=== PATIENT | male | born 1960 | race Caucasian/White ===

== ENCOUNTER 2023-07-04 12:26 | Outpatient (OUT) | payer MEDICARE, SELFPAY ==
--- NOTE | 2023-07-04 12:28 | ECG_ITS ---
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
--- NOTE | 2023-07-04 12:55 | XR_ITS ---
The [address] [address] Patient Name: CHAITANYA BELTRAN MRN: [id number] date: 1960 Sex: M Assigned Patient Location: [facility] Current Patient Location: Accession/Order Number: [id number] Exam Date: 07/04/2023 13:20 Report Date: 07/05/2023 09:01 At the request of: PENG VILLALTA Procedure: XR chest 2V EXAM: XR chest 2V HISTORY: Preop exam COMPARISON: None. TECHNIQUE: PA and lateral views of the chest. FINDINGS: The cardiomediastinal silhouette is normal. No focal consolidation is identified. There is no pneumothorax. No pleural effusion is noted. The osseous structures are intact. XR/XR chest 2V IMPRESSION: No acute cardiopulmonary process. Electronically authenticated by: KAYLA RAYMUNDO Date: 07/05/2023 09:01
[2023-07-04 13:37] LABS: Basophils Percent Auto 0.5 % (0.2-2.0); Hematocrit 36.1 % (42.0-54.0); Hemoglobin 11.1 g/dL (14.0-18.0); Immature Granulocytes Abs Auto 0.09 10^3/uL (0.00-0.03); Immature Granulocytes Pct Auto 2.3 % (0.0-0.5); Lymphocytes Percent Auto 50.5 % (20.5-60.0); Mean Corpuscular HGB Conc 30.7 g/dL (29.9-35.2); Mean Corpuscular Hemoglobin 27.3 pg (25.9-34.0); Mean Corpuscular Volume 88.9 fL (80.0-94.0); Mean Platelet Volume 9.7 fL (9.5-13.5); Monocytes Absolute Auto 0.3 10^3/uL (0.3-0.8); Monocytes Percent Auto 7.3 % (1.7-12.0); Neutrophils Absolute Auto 1.5 10^3/uL (1.4-6.5); Neutrophils Percent Auto 39.4 % (43.0-75.0); Platelet Count 202 10^3/uL (150-450); Red Blood Count 4.06 10^6/uL (4.70-6.10); Red Cell Distribution Width 16.4 % (11.0-15.0); White Blood Count 3.9 10^3/uL (4.0-11.0)
[2023-07-04 13:51] LABS: INR 0.96; Partial Thromboplastin Time 32.6 sec (22.3-36.2); Prothrombin Time 10.2 sec (9.0-11.6)
[2023-07-04 15:11] LABS: Anion Gap 12.1; BUN Creatinine Ratio 12.4; Calcium 9.8 mg/dL (8.5-10.1); Carbon Dioxide 26.9 mmol/L (21.0-32.0); Chloride 102 mmol/L (98-107); Estimated GFR (African America >60 (>=60); Estimated GFR (Non-African Ame >60 (>=60); Glucose 88 mg/dL (74-106); Sodium 137 mmol/L (136-145)
== END 2023-07-04 12:27 | disposition home or self-care (01) ==
LOC: PST 12:26
PROVIDERS: PCP Internal Medicine; Visit Provider Otolaryngology
DX: Z01.810 Encounter for preprocedural cardiovascular examination (principal); Z01.812 Encounter for preprocedural laboratory examination; R22.1 Localized swelling, mass and lump, neck; D49.0 Neoplasm of unspecified behavior of digestive system; H61.23 Impacted cerumen, bilateral
CPT/HCPCS: 71046; 80048; 85025; 85610; 85730; 93005

== ENCOUNTER 2023-07-18 06:31 | Day surgery (SDC) | payer MEDICARE, SELFPAY ==
[2023-07-04 13:16] VITALS: BP 141/78; PULSE 63; RESP 20; TEMP 36.4; O2SAT 97; BMI 33.3
[2023-07-18] VITALS (11 sets, daily range): BP systolic 160–176; BP diastolic 70–85; PULSE 84–99; RESP 16–24; TEMP 36.4–36.5; O2SAT 92–97; BMI 33.6
--- NOTE | 2023-07-18 | OP_ITS ---
OPERATION DATE: 07/18/2023 PRIMARY CARE PHYSICIAN: Vic Matias D.O. SURGEON: Heather Hilton M.D. PREOPERATIVE DIAGNOSIS: Bilateral cerumen impaction, left neck mass and left tongue base mass. POSTOPERATIVE DIAGNOSIS: Bilateral cerumen impaction, left neck mass and left tongue base mass. PROCEDURE: Bilateral removal of cerumen, direct laryngoscopy and biopsy of left tongue base mass and removal of left neck mass. ANESTHESIA: General endotracheal. COMPLICATIONS: None. FINDINGS: Bilateral cerumen impaction, a 1.5 cm left tongue base mass and a 4 cm subcutaneous left submental mass consistent with a sebaceous cyst. INDICATIONS: This 63-year-old man initially presented with a very large mass consistent with a sebaceous cyst of the left submental neck. He was also noted to have bilateral cerumen impactions in the office. A preoperative CT scan was obtained in order to assess the mass relationship to the platysma muscle in order to determine the risk of facial nerve injury. On the CT scan, there was asymmetry of the left tongue base noted. On examination in the office, there was fullness of the left tongue base compared to the right. PROCEDURE: Patient identified in the holding area and taken back to the OR. After induction of general endotracheal anesthesia, the right ear was approached with the otomicroscope and cerumen cleaned from the canal with a curette and suction. Attention was turned to the left ear, where the same procedure was performed. The table was then turned, a shoulder roll placed, and a tooth guard put in position. A Dedo laryngoscope was used to visualize the tongue base. A nodular area of increased nodularity was identified, consistent with the patient?s preoperative examination, and a cup forcep was used to take multiple biopsies of the tongue base. There was self-limited bleeding. The table was then returned to its original position and the left neck and face were prepped and draped in a sterile fashion. An elliptical incision was made around the mid portion of the patient?s mass as the skin was so thin as to not be salvageable. Then, dissection was carried out with a scissor, skeletonizing the patient?s cyst. There was one opening made into the cyst with some release of the internal contents, but the cyst was removed intact in its entirety. The wound was then copiously irrigated with normal saline containing Clindamycin to reduce the risk of infection. Hemostasis was achieved with bipolar cautery, and the wound was then closed first by placing interrupted deep 5-0 Vicryl sutures in order to close the potential space created by the cyst, and then a layer of interrupted 5-0 Vicryl subcutaneous sutures and a 5-0 Monocryl subcuticular stitch. Antibiotic ointment was placed and then a pressure dressing, and the patient was awakened and taken to the recovery room in good condition, where he was noted to have normal marginal mandibular nerve function. DMITRIY
--- OUTSIDE RECORDS SUMMARY | 2023-07-18 06:33 | XMS_ITS | CCD ---
Author Name Unknown Address [address] [place] [address] Organization [facility] Care Team Providers Care Site Planner Name Role Phone PENG VILLALTA Attending Unavailable Encounters Encounter Date Encounter Type Care Provider Facility Start: 06-26-2023 End: 06-26-2023 ambulatory PENGPAYTON VILLALTA Not Available Payers Date Payer Category Payer Medicare [id number] 1960 Unknown [id number] Summary Purpose Family History No Family History Records Found Advance Directives No Advanced Directives Records Found Additional Source Comments (unrecognized sect ion and content) No Status Records Found INFORMATION SOURCE (unrecogn ized section and content) DATE CREATED AUTHOR 06/27/2023 [facility] EPIC FOR RECORDS PERTAINING TO PATIENTS WHO ARE OR HAVE BEEN ENROLLED IN A CHEMICAL DEPENDENCY/SUBSTANCEABUSE PROGRAM, SOME INFORMATION MAY BE OMITTED. This clinical summary was aggregated from multiple sources. Caution should be exercised in using it in the provision of clinical care. This summary normalizes information from multiple sources, and as a consequence, information in this document may materially change the coding, format and clinical context of patient data. In addition, data may be omitted in some cases. CLINICAL DECISIONS SHOULD BE BASED ON THE PRIMARY CLINICAL RECORDS. [facility] [employer] provides no warranty or guarantee of the accuracy or completeness of information in this document.
[2023-07-18] MEDS: LACTATED RINGER'S SOLUTION 1,000 ML 50 ML IV (07:14)
[2023-07-18] MEDS: AMPICILLIN SODIUM/SULBACTAM NA 3 GM in 0.9 % SODIUM CHLORIDE 100 ML IV (09:20)
[2023-07-18] MEDS: CLINDAMYCIN PHOSPHATE/D5W 600 MG/50 ML PIGGYBACK 100 MG IRR (09:39)
[2023-07-18] MEDS: BACITRACIN OINTMENT 28.4 GM TUBE 1 APPLIC TOPICAL (09:49)
== END 2023-07-18 11:16 | disposition home or self-care (01) ==
PROVIDERS: PCP Internal Medicine; Visit Provider Otolaryngology
PROC: (CPT 11424; principal; 2023-07-18 07:50)
PROC: (CPT 11424; 2023-07-18 07:50)
PROC: (CPT 11424; 2023-07-18 07:50)
DX: L72.0 Epidermal cyst (principal); D10.1 Benign neoplasm of tongue; H61.23 Impacted cerumen, bilateral; I25.10 Atherosclerotic heart disease of native coronary artery without angina pectoris; M47.26 Other spondylosis with radiculopathy, lumbar region; I73.00 Raynaud's syndrome without gangrene; E78.5 Hyperlipidemia, unspecified; I10 Essential (primary) hypertension; I65.09 Occlusion and stenosis of unspecified vertebral artery; J30.0 Vasomotor rhinitis; R22.1 Localized swelling, mass and lump, neck
CPT/HCPCS: 11424; 12042; 31535; 69210; 36415; 88304; 88305; 88341; 88342; J0295; J1100; J2250; J2405; J2704; J3010